=== PATIENT | female | born 1965 | race African-American/Black ===

== ENCOUNTER → 2016-12-19 | Outpatient (CLI) | payer OTHER ==
[~2016-12-19] MED LIST: HYDROCHLOROTHIA25 MG PO; NAPROXEN500 MG PO; PERCOCET 5/31 TABLET PO; PREDNISONE20 MG PO; VITAMIN D2000 INTUN; VIVELLE-DOT,0.025 MG TD
== END | disposition home or self-care (01) ==
LOC: CDC 11:48
DX: R94.31 Abnormal electrocardiogram [ECG] [EKG] (principal); M25.562 Pain in left knee
CPT/HCPCS: 93000

== ENCOUNTER 2017-04-06 11:14 | Emergency (ER) | payer SELFPAY ==
[~2017-04-06] VITALS: Ht 170.2 cm; Wt 129.5 kg
[2017-04-06 13:23] LABS: EOSINOPHIL (%) 0.7 % (0-5); EOSINOPHIL COUNT 0.1 K/uL (0-0.3); HEMATOCRIT 43.2 % (36.0-46.0); IMMATURE GRANULOCYTE (%) 0.1 % (0.0-0.7); INSTRUMENT ABS NEUTROPHIL CT 4.9 K/uL; MCH 25.6 PG (29.0-34.0); MCHC 32.2 G/DL (30.0-36.0); MCV 79.7 FL (83-99); MEAN PLAT.VOLUME 9.8 uM^3 (9.5-12.4); MONOCYTE COUNT 0.3 K/uL (0-0.8); NEUTROPHIL (%) 67.2 % (45-76); NEUTROPHIL COUNT 4.9 K/uL (1.8-6.4); PLATELET COUNT 305 K/uL (156-360); RBC DIS.WIDTH-CV 13.1 % (11.8-14.6); RBC DIS.WIDTH-SD 37.5 % (39-53); RED BLOOD COUNT 5.42 M/uL (3.80-5.20); WHITE BLOOD COUNT 7.3 K/uL (4.1-10.2)
[2017-04-06 13:33] LABS: CHLORIDE 96 mEq/L (99-109); POTASSIUM 3.6 mEq/L (3.7-5.4); SODIUM 138 mEq/L (136-147)
[2017-04-06 13:35] LABS: GLUCOSE 145 mg/dL (70-99)
[2017-04-06 13:36] LABS: ANION GAP 14 MEQ/L (2-14)
[2017-04-06 13:39] LABS: GFR ESTIMATE (CALCULATED) 56 mL/min/
[2017-04-06 13:40] LABS: UREA NITROGEN (BUN) 17 mg/dL (9-23)
[2017-04-06 14:40] LABS: TOTAL BILIRUBIN 0.5 mg/dL (0.0-1.0)
[2017-04-06 14:41] LABS: ALKALINE PHOSPHATASE 83 IU/L (3-129)
[2017-04-06 14:43] LABS: DIRECT BILIRUBIN 0.2 mg/dL (0.0-0.3)
[2017-04-06 14:44] LABS: LIPASE 13 U/L (1.0-51.0)
[2017-04-06 14:50] LABS: TROP-I INTERPRETATION NEGATIVE; TROPONIN-I < 0.01 ng/mL (0.0-0.30)
[2017-04-06 14:59] LABS: ADD MIUA? NO; BILIRUBIN NEGATIVE; BLOOD NEGATIVE; COLOR YELLOW ((YELLOW)); GLUCOSE (STRIP) NEGATIVE; KETONES NEGATIVE; LEUKOCYTES NEGATIVE; NITRITE NEGATIVE; PROTEIN (STRIP) NEGATIVE; SPECIFIC GRAVITY 1.021 (1.000-1.030); UROBILINOGEN 0.2 MG/DL (0.2-1.0)
[2017-04-06] MEDS ORDERED: BENTYL20 MG PO (15:22)
[2017-04-06 15:50] VITALS: BP 131/85
== END 2017-04-06 15:50 | disposition home or self-care (01) ==
LOC: EME 11:14
PROVIDERS: Nurse Practitioner Family
DX: R10.12 Left upper quadrant pain (principal); R10.32 Left lower quadrant pain; I10 Essential (primary) hypertension; Z88.0 Allergy status to penicillin
CPT/HCPCS: 71020; 74176; 80048; 80076; 81003; 83690; 84484; 85025; 93005; 99281; 99283; J2270; J3010

== ENCOUNTER 2017-09-27 21:03 | Emergency (ER) | payer BC ==
[~2017-09-27] VITALS: Ht 170.2 cm; Wt 130.7 kg
[~2017-09-27 21:03] MED LIST changes: +BENTYL20 MG PO
[2017-09-27 21:14] VITALS: BP 127/94
[2017-09-27 21:26] LABS: HEMATOCRIT 40.7 % (36.0-46.0); HEMOGLOBIN 13.6 G/DL (11.9-15.5); MCH 26.2 PG (29.0-34.0); MCHC 33.4 G/DL (30.0-36.0); MCV 78.4 FL (83-99); PLATELET COUNT 331 K/uL (156-360); RBC DIS.WIDTH-CV 12.7 % (11.8-14.6); RBC DIS.WIDTH-SD 36.4 % (39-53); RED BLOOD COUNT 5.19 M/uL (3.80-5.20); WHITE BLOOD COUNT 8.9 K/uL (4.1-10.2)
[2017-09-27 21:43] LABS: ALBUMIN 4.1 g/dL (3.2-4.8)
[2017-09-27 21:44] LABS: CHLORIDE 99 mEq/L (99-109); POTASSIUM 3.7 mEq/L (3.7-5.4); SODIUM 136 mEq/L (136-147)
[2017-09-27 21:46] LABS: GLUCOSE 356 mg/dL (70-99); TOTAL PROTEIN 7.6 g/dL (6.4-8.3)
[2017-09-27 21:48] LABS: TOTAL BILIRUBIN 0.5 mg/dL (0.0-1.0)
[2017-09-27 21:49] LABS: ALKALINE PHOSPHATASE 93 IU/L (3-129)
[2017-09-27 21:50] LABS: CREATININE 1.3 mg/dL (0.6-1.3); GFR ESTIMATE (CALCULATED) 56 mL/min/
[2017-09-27 21:51] LABS: AST (GOT) 20 IU/L (2-34); UREA NITROGEN (BUN) 21 mg/dL (9-23)
[2017-09-27 21:52] LABS: ALT (GPT) 33 IU/L (3-49)
[2017-09-27 21:58] LABS: QUANTITATIVE HCG 4.8 MIU/ML
[2017-09-27 22:14] LABS: APPEARANCE CLEAR ((CLEAR)); BILIRUBIN NEGATIVE; BLOOD NEGATIVE; COLOR YELLOW ((YELLOW)); GLUCOSE (STRIP) >=500; KETONES NEGATIVE; LEUKOCYTES NEGATIVE; NITRITE NEGATIVE; PROTEIN (STRIP) NEGATIVE; SPECIFIC GRAVITY 1.025 (1.000-1.030); UCUL ADDED? NO; UROBILINOGEN 0.2 MG/DL (0.2-1.0)
== END 2017-09-27 23:40 | disposition left against medical advice (07) ==
LOC: EME 21:03
DX: R79.89 Other specified abnormal findings of blood chemistry (principal); Z53.21 Procedure and treatment not carried out due to patient leaving prior to being seen by health care provider
CPT/HCPCS: 80053; 81003; 84702; 85027

== ENCOUNTER 2017-12-24 17:43 | Observation (INO) | payer BC ==
[~2017-12-24] VITALS: Ht 170.2 cm; Wt 132.2 kg
[2017-12-24 18:45] LABS: HEMATOCRIT 38.3 % (36.0-46.0); HEMOGLOBIN 12.6 G/DL (11.9-15.5); MCH 26.4 PG (29.0-34.0); MCHC 32.9 G/DL (30.0-36.0); MCV 80.1 FL (83-99); PLATELET COUNT 322 K/uL (156-360); RBC DIS.WIDTH-CV 13.4 % (11.8-14.6); RBC DIS.WIDTH-SD 38.7 % (39-53); RED BLOOD COUNT 4.78 M/uL (3.80-5.20); WHITE BLOOD COUNT 7.3 K/uL (4.1-10.2)
[2017-12-24 18:54] LABS: CHLORIDE 101 mEq/L (99-109); POTASSIUM 3.3 mEq/L (3.7-5.4)
[2017-12-24 18:56] LABS: GLUCOSE 127 mg/dL (70-99); SODIUM 139 mEq/L (136-147)
[2017-12-24 19:00] LABS: CREATININE 1.1 mg/dL (0.6-1.3); GFR ESTIMATE (CALCULATED) > 59 mL/min/
[2017-12-24 19:01] LABS: UREA NITROGEN (BUN) 13 mg/dL (9-23)
[2017-12-24 19:12] LABS: TROP-I INTERPRETATION NEGATIVE; TROPONIN-I < 0.01 ng/mL (0.0-0.30)
[2017-12-24] MEDS ORDERED: ZYRTEC-D1 TABLE1 PO (22:13)
[2017-12-24] MEDS ORDERED: [UNRECOGNIZED DRUG - OTHER] PO (22:17)
[2017-12-24] MEDS ORDERED: PROGESTERONE100 MG PO (22:17)
[2017-12-24] MEDS ORDERED: [UNRECOGNIZED DRUG - OTHER] PO (22:18)
[2017-12-24] MEDS ORDERED: TURMERIC500 M2 PO (22:18)
[2017-12-24] MEDS ORDERED: VITAMIN D35000 UNIT PO (22:18)
[2017-12-24] MEDS ORDERED: FLEXERIL10 MG PO (22:19)
[2017-12-24] MEDS ORDERED: NEURONTIN300 MG PO (22:19)
[2017-12-24] MEDS ORDERED: PROBIOTIC1 EAC1 PO (22:19)
[2017-12-24] MEDS ORDERED: VENTOLIN HFA18 GM IH (22:20)
[2017-12-24] MEDS ORDERED: INDERAL LA80 MG PO (22:20)
[2017-12-24] MEDS ORDERED: GLUCOPHAGE1000 MG PO (22:20)
[2017-12-25 00:24] VITALS: BP 118/57
[2017-12-25 01:10] LABS: TROP-I INTERPRETATION NEGATIVE; TROPONIN-I < 0.01 ng/mL (0.0-0.30)
[2017-12-25 04:12] VITALS: BP 125/76
[2017-12-25 08:01] LABS: TROP-I INTERPRETATION NEGATIVE; TROPONIN-I < 0.01 ng/mL (0.0-0.30)
[2017-12-25 08:41] VITALS: BP 124/72
[2017-12-25] MEDS ORDERED: ASPIR-LOW81 MG PO (10:03)
[2017-12-25] MEDS ORDERED: NITROSTAT0.4 MG SL (10:03)
[2017-12-25 11:52] VITALS: BP 125/70
== END 2017-12-25 12:30 | disposition home or self-care (01) ==
LOC: EME 17:43 → 4SOUTH 22:52 → EDOF 22:52 → ENRESERV 22:55 → 4SOUTH 12-25 00:10
PROVIDERS: Internal Medicine; Physician Assistant
DX: R07.9 Chest pain, unspecified (principal); R60.0 Localized edema; D86.9 Sarcoidosis, unspecified; E87.6 Hypokalemia; E11.9 Type 2 diabetes mellitus without complications; I10 Essential (primary) hypertension; G89.29 Other chronic pain; M54.9 Dorsalgia, unspecified; R61 Generalized hyperhidrosis; R06.02 Shortness of breath; M79.662 Pain in left lower leg; M79.661 Pain in right lower leg; M79.89 Other specified soft tissue disorders; Z90.710 Acquired absence of both cervix and uterus; Z90.49 Acquired absence of other specified parts of digestive tract; Z98.1 Arthrodesis status; Z79.84 Long term (current) use of oral hypoglycemic drugs; Z82.49 Family history of ischemic heart disease and other diseases of the circulatory system; Z83.3 Family history of diabetes mellitus; Z82.5 Family history of asthma and other chronic lower respiratory diseases; Z88.0 Allergy status to penicillin
CPT/HCPCS: 71046; 71275; 80048; 82948; 83880; 84484; 85027; 85379; 93005; 93970; 99281; 99285; G0378; J1644; J1815; J7030